=== PATIENT | male | born 1990 ===

== ENCOUNTER 2017-03-31 11:55 | Emergency (ER) | payer OTHER ==
[2017-03-31 12:19] VITALS: TEMP 98.1
[2017-03-31] MEDS ORDERED: Lidocaine 5% Patch TD STA (12:31)
[2017-03-31] MEDS ORDERED: Lidocaine 5% Patch TD ONE (12:36)
--- NOTE | 2017-03-31 12:36 | C.PDOC ---
Time Seen by Provider: 03/31/17 12:17 Chief Complaint (Nursing): Back Pain Past Medical History Vital Signs: Last Vital Signs Temp 98.1 F 03/31/17 12:03 Pulse 100 H 03/31/17 12:03 Resp 18 03/31/17 12:03 BP 144/99 H 03/31/17 12:03 Pulse Ox 99 03/31/17 12:03 - Medical History PMH: Asthma - Social History Hx Alcohol Use: No Hx Substance Use: No - Immunization History Hx Tetanus Toxoid Vaccination: No Hx Influenza Vaccination: No Hx Pneumococcal Vaccination: No ED Course And Treatment O2 Sat by Pulse Oximetry: 99 Disposition Counseled Patient/Family Regarding: Diagnosis, Need For Followup, Rx Given - Disposition Referrals: [facility] [Outside] [facility] [Outside] Disposition: HOME/ ROUTINE Disposition Time: 12:33 Condition: IMPROVED Prescriptions: Acetaminophen/Codeine [Tylenol/Codeine 300 MG/30 MG] 2 tab PO Q6H #20 tab Cyclobenzaprine [Flexeril] 10 mg PO TID #15 tab Ibuprofen [Motrin] 600 mg PO Q6 #30 tab Lidocaine 5% [Lidoderm] 1 ea TD PRN PRN #10 patch PRN Reason: Pain, Moderate (4-7) Instructions: Muscle Spasm (ED), Cervical Radiculopathy (ED) Forms: Work Excuse, Accompanied To ED By: - Clinical Impression Clinical Impression: Cervical radiculopathy, Thoracic back sprain
--- NOTE | 2017-03-31 12:37 | C.PDOC ---
History Of Present Illness 26 yr old male presents to the ER with new onset of left neck and upper back pain since yesterday. 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 Patient states the pain radiates from left neck to left shoulder associated with some tingling down the left arm. Patient states he has been diagnosed with lumbar herniated disc and tried some naproxen yesterday with limited relief. Patient denies chronic neck pain, cervical herniated disc, abdominal pain, constipation, dysuria, incontinence, weakness or numbness. Time Seen by Provider: 03/31/17 12:17 Chief Complaint (Nursing): Back Pain History Per: Patient History/Exam Limitations: no limitations Onset/Duration Of Symptoms: Sudden Onset (Yesterday ) Current Symptoms Are (Timing): Still Present Previous Symptoms: None Associated Symptoms: None Past Medical History Reviewed: Historical Data, Nursing Documentation, Vital Signs Vital Signs: Last Vital Signs Temp 98.1 F 03/31/17 12:03 Pulse 74 03/31/17 12:46 Resp 16 03/31/17 12:46 BP 126/69 03/31/17 12:46 Pulse Ox 98 03/31/17 12:46 - Medical History PMH: Asthma Family History: States: No Known Family Hx - Social History Hx Alcohol Use: No Hx Substance Use: No - Immunization History Hx Tetanus Toxoid Vaccination: No Hx Influenza Vaccination: No Hx Pneumococcal Vaccination: No Review Of Systems Except As Marked, All Systems Reviewed And Found Negative. Gastrointestinal: Negative for: Abdominal Pain, Constipation Genitourinary: Negative for: Dysuria, Incontinence Musculoskeletal: Positive for: Neck Pain (Left neck ), Shoulder Pain (Neck pain radiating to left shoulder ), Back Pain (Upper back ), Other ((+) Tingling sensation in the left arm ) Neurological: Negative for: Weakness, Numbness Physical Exam - Physical Exam Appears: Well, Non-toxic, No Acute Distress Skin: Warm, Dry, No Rash Head: Atraumatic, Normacephalic Neck: No Midline Cervical Tenderness, No Paracervical Tenderness, Supple, Other (Limited rotation on the lateral neck. ) Chest: Symmetrical, No Tenderness Cardiovascular: Rhythm Regular, No Murmur Respiratory: Normal Breath Sounds, No Rales, No Rhonchi, No Stridor, No Wheezing Gastrointestinal/Abdominal: Normal Exam, Soft, No Tenderness, No Distention, No Guarding, No Rebound Back: Other ((+) Swelling spasm with local tenderness to the left upper back ) Extremity: Normal ROM, No Tenderness, Capillary Refill (<2), No Swelling Neurological/Psych: Oriented x3, Normal Speech, Normal Motor, Normal Sensation, Normal Reflexes ED Course And Treatment O2 Sat by Pulse Oximetry: 99 Medical Decision Making Medical Decision Making: PLAN: * Decadron PO * Flexeril PO * Motrin PO * Lidoderm TD Disposition Counseled Patient/Family Regarding: Diagnosis, Need For Followup - Disposition Referrals: [facility] [Outside] [facility] [Outside] Disposition: HOME/ ROUTINE Disposition Time: 12:30 Condition: IMPROVED Prescriptions: Acetaminophen/Codeine [Tylenol/Codeine 300 MG/30 MG] 2 tab PO Q6H #20 tab Cyclobenzaprine [Flexeril] 10 mg PO TID #15 tab Ibuprofen [Motrin] 600 mg PO Q6 #30 tab Lidocaine 5% [Lidoderm] 1 ea TD PRN PRN #10 patch PRN Reason: Pain, Moderate (4-7) Instructions: Cervical Radiculopathy (ED), Muscle Spasm (ED) Forms: Accompanied To ED By:, Work Excuse - Clinical Impression Clinical Impression: Cervical radiculopathy, Thoracic back sprain - Scribe Statement The provider has reviewed the documentation as recorded by the Salazar Germain Provider Attestation: All medical record entries made by the Trinaibóscar were at my direction and personally dictated by me. I have reviewed the chart and agree that the record accurately reflects my personal performance of the history, physical exam, medical decision making, and the department course for this patient. I have also personally directed, reviewed, and agree with the discharge instructions and disposition.
[2017-03-31 12:47] VITALS: BP 126/69; PULSE 74; RESP 16
[2017-04-02 09:21] VITALS: O2SAT 99
== END 2017-03-31 12:46 | disposition home or self-care (01) ==
LOC: C.ER 11:55
DX: M54.12 Radiculopathy, cervical region (principal); S23.3XXA Sprain of ligaments of thoracic spine, initial encounter; X58.XXXA Exposure to other specified factors, initial encounter; Y92.89 Other specified places as the place of occurrence of the external cause
CPT/HCPCS: 99284; J8540

== ENCOUNTER 2017-04-17 11:59 | Emergency (ER) | payer OTHER ==
[2017-04-17 12:03] VITALS: BMI 21.5
--- NOTE | 2017-04-17 12:13 | C.PDOC ---
History Of Present Illness 26 y/o male c/o pain and swelling to right 5th finger/hand. pt was working on a car, twisting something, and right hand slipped and punched into part of car. pt c/o pain and swelling. pt is right hand dependent. pt denies cp and sob, sts he smoked cigarettes and used albuterol mdi after injury. Time Seen by Provider: 04/17/17 12:04 Chief Complaint (Nursing): Finger,Hand,&Wrist History Per: Patient History/Exam Limitations: no limitations Onset/Duration Of Symptoms: Hrs (1) Current Symptoms Are (Timing): Still Present Quality: "Pain" Severity: Moderate Past Medical History Reviewed: Historical Data, Nursing Documentation, Vital Signs Vital Signs: Last Vital Signs Temp 98 F 04/17/17 12:04 Pulse 120 H 04/17/17 12:04 Resp 18 04/17/17 12:04 BP 127/78 04/17/17 12:04 Pulse Ox 100 04/17/17 13:26 - Medical History PMH: Asthma Surgical History: No Surg Hx Family History: States: Unknown Family Hx - Social History Hx Tobacco Use: Yes Hx Alcohol Use: No Hx Substance Use: No - Immunization History Hx Tetanus Toxoid Vaccination: No Hx Influenza Vaccination: No Hx Pneumococcal Vaccination: No Review Of Systems Cardiovascular: Negative for: Chest Pain Respiratory: Negative for: Cough, Shortness of Breath Musculoskeletal: Positive for: Hand Pain (right). Negative for: Neck Pain Neurological: Negative for: Weakness, Numbness Physical Exam - Physical Exam Appears: Non-toxic, No Acute Distress Skin: Warm, Dry Neck: Normal ROM Respiratory: Normal Breath Sounds, No Accessory Muscle Use, No Wheezing Extremity: Other (swelling and tenderness to right 5th metacarpal and mcp joint , skin intact. cap refill <2 sec, from at right wrist, elbow and shoulder. ) Extremity: Left: Atraumatic, Right: Bony Point Tenderness (5th metacarpal and mcp joint), Bilateral: Normal Color And Temperature Pulses: Right Radial: Normal ED Course And Treatment O2 Sat by Pulse Oximetry: 100 - Other Rad right hand X-Ray: Interpreted by Me Interpretation: angulated fx of distal right 5th metacarpal Orthopedic Time Performed: 14:00 Time Out: Side verified Procedure: Splint, Other (reduction of angulated fx) Type: Short (ulnar gutter) Location: Right Consent obtained: Verbal Performed by: Mid-level Provider (and clinical provider) Diagnosis: Fracture Type: Closed, Angulated Location: Right Bone: Metacarpal (5th) Anesthetic Technique: Local Anesthetic: Lidocaine 2% Capillary refill: Normal Distal Sensation: Normal Distal Motor Function: Normal Capillary Refill: Normal Compartment: Normal Distal Sensation: Normal Distal Motor Function: Normal Complications: better alignment Patient tolerated procedure: Well Medical Decision Making Medical Decision Making: right hand pain and swelling s/p injury= cold compress, xray and ibuprofen 226 pm dec angulation after reduction. will d/c with ortho or hand splint applied., Disposition Counseled Patient/Family Regarding: Diagnosis, Need For Followup, Rx Given - Disposition Referrals: Dimas Myers III, MD [Staff Provider] - Christian Tam MD [Staff Provider] - [facility] [Outside] Disposition: HOME/ ROUTINE Disposition Time: 14:30 Condition: STABLE Additional Instructions: Keep splint on at all times. Keep hand elevated whenever possible. Ibuprofen 600 mg by mouth every 6 hours. Follow up with either orthopedist or hand surgeon. If unable to make appointment with either of them, call [facility] for assistance with appointment. Instructions: Splint Care (ED), Boxer Fracture (ED) Forms: General Discharge Instructions - Clinical Impression Clinical Impression: Fracture of fifth metacarpal bone of right hand
[2017-04-17] MEDS ORDERED: Lidocaine 2% Inj (20ml) INFIL ONE (12:33)
[2017-04-17] MEDS ORDERED: Lidocaine 2% Inj (20ml) ONE (13:12)
--- NOTE | 2017-04-17 13:35 | RAD ---
PROCEDURE: Right Hand Radiographs. HISTORY: pain and swelling 5th metacarpal and mtp COMPARISON: None. FINDINGS: BONES: Boxer fracture distal aspect right 5th finger with palmar and slight radial angulation of the distal fragment. Overlying soft tissue swelling JOINTS: Normal. No osteoarthritic changes. SOFT TISSUES: As above OTHER FINDINGS: None. IMPRESSION: Boxer fracture distal aspect right 5th finger with palmar and slight radial angulation of the distal fragment. Note that this report was placed in PA review folder for followup
[2017-04-17 14:48] VITALS: BP 115/71; PULSE 85; RESP 20; TEMP 98.5
--- NOTE | 2017-04-17 16:27 | RAD ---
PROCEDURE: Right Hand Radiographs. HISTORY: post reduction COMPARISON: None. FINDINGS: BONES: Status post closed reduction previously noted on boxer fracture right 5th finger. Persistent but slightly improved volar and radial angulation of the distal fragment. Note that overlying fiberglass cast partially obscures and bone detail. . JOINTS: Normal. No osteoarthritic changes. SOFT TISSUES: Normal. OTHER FINDINGS: None. IMPRESSION: Status post closed reduction boxer fracture 5th finger right hand
[2017-04-17 22:07] VITALS: O2SAT 100
== END 2017-04-17 14:48 | disposition home or self-care (01) ==
LOC: C.ER 11:59
DX: S62.396A Other fracture of fifth metacarpal bone, right hand, initial encounter for closed fracture (principal); W22.8XXA Striking against or struck by other objects, initial encounter